=== PATIENT | female | born 1990 | race Caucasian/White ===

== ENCOUNTER → 2016-11-21 | Day surgery (SDC) | payer OTHER ==
[~2016-11-21] VITALS: Ht 170.2 cm; Wt 149.0 kg
[~2016-11-21] MED LIST: 0.9% Sodium Chloride 1,000 ML IV SCH; AGM875T PO; OMEP20CA11 PO; ONDA-53 PO; SUCR1TAB PO; Sodium Chloride LOK Flush 10 mL Syringe IV PRN; fentaNYL-PF 50 mCg/mL 2 mL Inj IVPUSH PRN
[2016-11-21 14:18] VITALS: BP 113/67; PULSE 68; RESP 16; O2SAT 96
[2016-11-21 15:15] VITALS: BP 137/82; PULSE 62; RESP 15; O2SAT 94
[2016-11-21 15:25] VITALS: BP 142/78; PULSE 58; RESP 16; O2SAT 96
--- NOTE | 2016-11-21 15:25 | ENDO ---
[address] [address] ENDOSCOPY PROCEDURE PATIENT: LUIS JOHNSON : 1990 MR#: [id number] ADMIT: 11/21/2016 JOB ID: [id number] DATE OF SERVICE: 11/21/2016 TYPE OF OPERATION: Esophagogastroduodenoscopy, biopsy. PREOPERATIVE DIAGNOSIS: Gastroesophageal reflux disease, chronic nausea. POSTOPERATIVE DIAGNOSIS: Mild nonerosive gastritis. ANESTHESIA: Fentanyl 125 mcg, Versed 6 mg IV administered. COMPLICATION: None. BLOOD LOSS: Minimal. DESCRIPTION OF PROCEDURE: After risks and benefits explained to the patient, informed consent was obtained. After anesthesia administered, the upper endoscope was then inserted into the mouth, intubated to esophagus, stomach, second portion of duodenum. Mucosa carefully examined. After the procedure was done, the scope withdrawn, procedure terminated. FINDINGS: Upon inspection of the esophagus, esophagus was normal without masses, ulcers, or lesions. Z-line located at 40 cm from incisors. Upon entering the stomach, there was mild nonerosive gastritis that was seen. No masses or ulcers were seen. Retroflexion was normal. Duodenal bulb, first and second portion were normal. Biopsies taken in duodenum, antrum, and body of the stomach and distal esophagus. IMPRESSION: Mild nonerosive gastritis. RECOMMENDATIONS: Await pathology results. Follow up in GI clinic with America Buck as needed.
[2016-11-21 15:35] VITALS: BP 131/73; PULSE 58; RESP 16; O2SAT 97
--- NOTE | 2016-11-27 16:24 | PATH ---
SURGICAL PATHOLOGY Attending Physician:Artis Estrada MD CASE STATUS: Signed Out PATIENT NAME: LUIS JOHNSON PID: [id number] : 1990 DATE COLLECTED:11/21/2016 00:00 SPECIMEN: 1: Duodenum, Biopsy 2: Stomach, Antrum, Biopsy 3: Gastric, Biopsy 4: Esophagus, Biopsy CLINICAL HISTORY: 1). DUODENAL BIOPSY 2). ANTRUM BIOPSY 3). GASTRIC BODY BIOPSY 4). DISTAL ESOPHAGUS BIOPSY FINAL DIAGNOSIS: 1. Duodenum, Biopsy: Duodenal mucosa with no diagnostic abnormality. Negative for active inflammation, features of sprue, dysplasia or malignancy. 2-3. Antrum and Body Biopsies: Gastric antral and body mucosa with no diagnostic abnormality. Helicobacter organisms not identified. Negative for intestinal metaplasia, dysplasia, and malignancy. 4. Distal Esophagus, Biopsy: Columnar mucosa with no diagnostic abnormality. Negative for intestinal metaplasia, dysplasia, and malignancy. ICD10: K21.0 GROSS DESCRIPTION: The specimen is received in four formalin filled containers labeled with the patient's name. 1). The specimen is labeled "duodenal" and consists of 2 portions of tissue which aggregate to 0.2 x 0.2 x 0.2 CM. The specimen is entirely submitted in cassette 1A. 2). The specimen is labeled "antrum" and consists of 2 portions of tissue which aggregate to 0.4 x 0.2 x 0.2 CM. The specimen is entirely submitted in cassette 2A. 3). The specimen is labeled "gastric body" and consists of 4 portions of tissue which aggregate to 0.3 x 0.3 x 0.2 CM. The specimen is entirely submitted in cassette 3A. 4). The specimen is labeled "distal esophagus" and consists of a 0.3 x 0.2 x 0.2 CM portion of tissue which is entirely submitted in cassette 4A. 11/22/2016MN ICD-9 CODES: CPT CODES: 1: 73050 2: 53481 3: 87849 4: 07211 Electronically Signed Out Christian Bahena MD, Ph.D. [facility], [place] [address] Technical component performed at [facility], [facility] [address], [address]
== END | disposition home or self-care (01) ==
LOC: END 02:27
PROVIDERS: ATTEND Internal Medicine Gastroenterology
DX: K29.60 Other gastritis without bleeding (principal); F17.210 Nicotine dependence, cigarettes, uncomplicated
CPT/HCPCS: 43239; G0500; J2250; J3010; J7030